=== PATIENT | female | born 2000 | race Caucasian/White ===

== ENCOUNTER → 2018-11-02 | Outpatient (CLI) | payer BC | LOC: COL.RAD 11:37 | DX: R10.32 Left lower quadrant pain (principal); R10.2 Pelvic and perineal pain ==

== ENCOUNTER 2018-11-06 23:45 | Emergency (ER) | payer BC ==
[~2018-11-06] VITALS: Ht 167.6 cm; Wt 75.5 kg
[2018-11-06 23:51] VITALS: TEMP 100.1
[2018-11-07 00:41] LABS: BASO # 0.1 (0.0-0.2); EOS # 0.3 (0.0-0.7); EOS % 4.1 % (0-4.0); GRAN # 3.9 (1.4-6.5); GRAN % 64.3 % (42.2-75.2); HEMATOCRIT 39.8 % (35.0-45.0); HEMOGLOBIN 13.6 g/dl (12.0-15.0); LYMPH # 1.4 (1.2-3.4); LYMPH % 22.2 % (20.0-51.0); MEAN CELL VOLUME 86 fl (80.0-95.0); MEAN CORPUSCULAR HEMOGLOBIN 29 pg (26.0-32.0); MEAN CORPUSCULAR HGB CONC 34 g/dl (33.0-37.0); MEAN PLATELET VOLUME 10.6 fl (7.4-10.4); MONO # 0.5 (0.1-0.6); MONO % 7.9 % (1.7-9.3); PLATELET COUNT 269 K/mm3 (130-400); RED BLOOD COUNT 4.62 M/mm3 (4.10-5.30); REDCELL DISTRIBUTION WIDTH-CV 11.6 % (11.5-14.5)
[2018-11-07 00:51] LABS: BILIRUBIN,TOTAL 0.7 mg/dL (0.0-1.0); CALCIUM 9.4 mg/dL (8.4-10.2); CREATININE, serum 0.65 (0.52-1.25); POTASSIUM 3.7 mmol/L (3.4-5.0); TOTAL PROTEIN 7.6 gm/dL (6.4-8.2)
[2018-11-07] MEDS ORDERED: ADDERALL XR30 MG PO (01:05)
[2018-11-07] MEDS ORDERED: ZOFRAN8 MG PO (01:06)
[2018-11-07] MEDS ORDERED: JOLESSA 30 MCG-1 TAB PO (01:06)
[2018-11-07] MEDS ORDERED: NAPROSYN500 MG PO (01:07)
[2018-11-07] MEDS ORDERED: BENTYL 20MG20 MG/TAB PO (01:07)
[2018-11-07 01:54] LABS: MUCOUS Present /lpf; PH 7 (5-8); URINE APPEARANCE Clear; URINE BACTERIA Rare /hpf; URINE BILIRUBIN Negative (NEGATIVE); URINE BLOOD 2+ (NEGATIVE); URINE COLOR Yellow; URINE GLUCOSE Negative (NEGATIVE); URINE KETONE 2+ (NEGATIVE); URINE LEUKOCYTE ESTERASE Negative (NEGATIVE); URINE NITRATE Negative (NEGATIVE); URINE PROTEIN(semi-quant) 1+ (NEGATIVE); URINE RBC >50 /hpf; URINE UROBILINOGEN >=4.0 mg/dL (NEGATIVE)
[2018-11-07 01:59] LABS: COLLECTION METHOD CLEAN CATCH
[2018-11-07] MEDS ORDERED: NORCO 325 MG-51 TAB PO (03:02)
[2018-11-07] MEDS ORDERED: AMOXICILLIN 8751 TAB PO (03:02)
[2018-11-07] MEDS ORDERED: ZOFRAN 4MG T4 MG/TAB PO (03:02)
[2018-11-07 04:35] VITALS: BP 114/72; PULSE 96
== END 2018-11-07 04:38 | disposition home or self-care (01) ==
LOC: COL.ER 23:45
PROVIDERS: Nurse Practitioner Primary Care
DX: K52.9 Noninfective gastroenteritis and colitis, unspecified (principal); R31.9 Hematuria, unspecified
CPT/HCPCS: J1885; J2270; J2405; J7030

== ENCOUNTER → 2019-06-10 | Outpatient (CLI) | payer BC ==
[~2019-06-10] MED LIST: ADDERALL XR30 MG PO; AMOXICILLIN 8751 TAB PO; BENTYL 20MG20 MG/TAB PO; JOLESSA 30 MCG-1 TAB PO; NAPROSYN500 MG PO; NORCO 325 MG-51 TAB PO; ZOFRAN 4MG T4 MG/TAB PO; ZOFRAN8 MG PO
== END ==
LOC: COL.RAD 06:40
DX: K59.00 Constipation, unspecified (principal); K58.9 Irritable bowel syndrome, unspecified
CPT/HCPCS: A9537; J2805

== ENCOUNTER 2019-07-09 10:56 | Observation (INO) | payer BC ==
[~2019-07-09] VITALS: Ht 167.6 cm; Wt 77.3 kg
[2019-07-09] VITALS (7 sets, daily range): BP systolic 102–133; BP diastolic 54–79; PULSE 69–84; TEMP 98–98.7
[2019-07-09 11:19] LABS: COLLECTION METHOD CLEAN CATCH
[2019-07-09] MEDS ORDERED: METADATECD30 (11:25)
[2019-07-09] MEDS ORDERED: FLOMAX 0.40.4 MG/CAP PO (11:26)
[2019-07-09] MEDS ORDERED: PRIL40 PO (11:27)
[2019-07-09] MEDS ORDERED: COLACE 100100 MG/CAP PO (11:28)
[2019-07-09] MEDS ORDERED: WOMEN'S DAILY1 TAB PO (11:28)
[2019-07-09] MEDS ORDERED: CRANBERRY250 MG (11:28)
[2019-07-09 11:29] LABS: MUCOUS Present /lpf; PH 7 (5-8); URINE APPEARANCE Hazy; URINE BACTERIA Rare /hpf; URINE BILIRUBIN Negative (NEGATIVE); URINE BLOOD Negative (NEGATIVE); URINE COLOR Yellow; URINE GLUCOSE Negative (NEGATIVE); URINE KETONE 1+ (NEGATIVE); URINE LEUKOCYTE ESTERASE 2+ (NEGATIVE); URINE NITRATE Negative (NEGATIVE); URINE PROTEIN(semi-quant) Negative (NEGATIVE); URINE UROBILINOGEN Negative (NEGATIVE)
[2019-07-09] MEDS ORDERED: ZYRTEC 10MG10 MG PO (11:29)
--- NOTE | 2019-07-09 13:50 | NUR ---
Admitted from ED with kidney stone. NPO. Dr. Kim saw patient. No c/o pain or nausea.
--- NOTE | 2019-07-09 15:45 | NUR ---
To surgery per bed with OR staff. Mother here.
--- NOTE | 2019-07-09 17:25 | NUR ---
Returned to room from PACU per bed. Ambulatory to bathroom to void. VSS. No c/o pain. Drinking water. Family at bedside.
--- NOTE | 2019-07-09 18:00 | NUR ---
Complained of severe pain in flank " like trying to pass a stone all over again." Trying to void. Medicated with Morphine and Levsin.
--- NOTE | 2019-07-09 18:30 | NUR ---
Morphine repeated for continued flank pain per order.
--- NOTE | 2019-07-09 18:45 | NUR ---
Able to void malik red urine and passed small blood clot. States pain much improved.
--- NOTE | 2019-07-10 04:05 | NUR ---
Patient stated that she passed a blood clot when this nurse arrived to shift. She states she didn't urinate in the measuring hat because "it made me uncomfortable". Patient states pain is better, but asks for a heating pad. This was given to patient. Patient then called awhile later and stated she felt like she was passing another kidney stone and wanted a CT completed. Educated attempted with patient, but patient and mother not interested. Dr. Kim notified about situation and stated that inflammation from procedure and kidney stone can feel the same. Dr. Kim in to see patient at 2114. Ordered to start patient on fluids and monitor pain throughout the night, and if pain persists, then a stent may be placed. Patient received P[place] 1 tab at 2030. Patient has been asleep since and has not complained of any pain. Will continue to monitor patient.
[2019-07-10 05:13] VITALS: BP 97/55; PULSE 61; TEMP 98.7
--- NOTE | 2019-07-10 06:12 | NUR ---
Patient states she is feeling better this morning, but "it still feels like I'm peeing razor blades." Education provided that it will be uncomfortable to urinate for awhile and that this is expected. Patient denies any further needs. Will continue to monitor.
[2019-07-10 08:36] VITALS: BP 118/73; PULSE 58; TEMP 98.5
--- NOTE | 2019-07-10 10:10 | NUR ---
Patient ready for discharge. Orders obtained, Dr. Kim rounded this am. Iv dc. Patient pain improved with Azo, was reporting razor blade feeling when voiding. office to call her with follow up. Patient mother taking her home. She ambulated out with all belongings, denies questions or concerns.
--- NOTE | 2019-07-10 11:07 | NUR ---
Patient resides with friends/roommates in [place], [place] and plans to discharge back home upon recovery with the support of her friends, roommates and family as needed. 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 Patient reported she had missed a couple of classes last week but her instructors were all understanding and at this time she did not need elementary school social worker to contact the [employer] [employer] of Student Life Department. Patient's primary care physician is Virginie Velez and she is following up with her Urologist Dr. Fermin Kim. Patient's pharmacies are [facility] and [facility], and she does not have advance direcives for healthcare completed at this time. Patient's mother is Clare Izaguirre ([phone]) and lives in [place], [place]. No further needs at this time and patient is discharging home this day.
== END 2019-07-10 10:34 | disposition home or self-care (01) ==
LOC: COL.ER 10:56 → JCC 12:55
PROVIDERS: Nurse Practitioner; ADMIT Urology
DX: N20.1 Calculus of ureter (principal); K21.9 Gastro-esophageal reflux disease without esophagitis; K58.9 Irritable bowel syndrome, unspecified; Z79.899 Other long term (current) drug therapy; Z88.1 Allergy status to other antibiotic agents
CPT/HCPCS: A4216; C1769; G0378; J0690; J0696; J2270; J2405; J2704; J3010; J7030; Q9967

== ENCOUNTER 2020-07-15 19:15 | Emergency (ER) | payer BC ==
[~2020-07-15] VITALS: Ht 170.2 cm; Wt 80.5 kg
[~2020-07-15 19:15] MED LIST changes: +COLACE 100100 MG/CAP PO; +CRANBERRY250 MG; +FLOMAX 0.40.4 MG/CAP PO; +METADATECD30; +PRIL40 PO; +WOMEN'S DAILY1 TAB PO; +ZYRTEC 10MG10 MG PO
[2020-07-15 19:34] LABS: COLLECTION METHOD CLEAN CATCH
[2020-07-15] MEDS ORDERED: XYZAL5 MG PO (19:35)
[2020-07-15 19:42] LABS: PH 7 (5-8); SQUAMOUS EPITHELIAL 0-2 /hpf; URINE APPEARANCE Clear; URINE BACTERIA None Seen /hpf; URINE BILIRUBIN Negative (NEGATIVE); URINE BLOOD 1+ (NEGATIVE); URINE COLOR Colorless; URINE GLUCOSE Negative (NEGATIVE); URINE KETONE Negative (NEGATIVE); URINE LEUKOCYTE ESTERASE Negative (NEGATIVE); URINE NITRATE Negative (NEGATIVE); URINE PROTEIN(semi-quant) Negative (NEGATIVE); URINE RBC 0-2 /hpf; URINE UROBILINOGEN Negative (NEGATIVE)
[2020-07-15 20:06] LABS: ALANINE AMINOTRANSFERASE 23 U/L (4-34); ALBUMIN 4.5 gm/dL (3.5-5.0); ALKALINE PHOSPHATASE 71 U/L (50-136); ANION GAP 9 mmol/L (7-16); AST,SGOT 26 U/L (15-37); BILIRUBIN,TOTAL 0.4 mg/dL (0.0-1.0); BLOOD UREA NITROGEN 8 mg/dL (7-17); C-REACTIVE PROTEIN < 0.5 mg/dL (0.0-0.9); CALCIUM 9.3 mg/dL (8.4-10.2); CARBON DIOXIDE 23 mmol/L (22-30); CHLORIDE 107 mmol/L (98-107); CREATININE, serum 0.75 (0.52-1.25); GLUCOSE 114 mg/dL (74-106); LIPASE 138 U/L (23-300); POTASSIUM 3.6 mmol/L (3.4-5.0); SODIUM 139 mmol/L (137-145); TOTAL PROTEIN 7.8 gm/dL (6.4-8.2)
[2020-07-15 20:43] LABS: BASO # 0.1 (0.0-0.2); EOS # 0.2 (0.0-0.7); EOS % 2.7 % (0-4.0); GRAN # 2.2 (1.4-6.5); GRAN % 29.3 % (42.2-75.2); HEMATOCRIT 40.5 % (37.0-47.0); HEMOGLOBIN 13.3 g/dl (12.5-16.0); LYMPH # 4.4 (1.2-3.4); LYMPH % 59.5 % (20.0-51.0); MEAN CELL VOLUME 88 fl (80.0-100.0); MEAN CORPUSCULAR HEMOGLOBIN 29 pg (27.0-31.0); MEAN CORPUSCULAR HGB CONC 33 g/dl (33.0-37.0); MEAN PLATELET VOLUME 10.4 fl (7.4-10.4); MONO # 0.5 (0.1-0.6); MONO % 7.1 % (1.7-9.3); PLATELET COUNT 289 K/mm3 (130-400); RED BLOOD COUNT 4.58 M/mm3 (4.10-5.30); REDCELL DISTRIBUTION WIDTH-CV 12.5 % (11.5-14.5)
[2020-07-15 21:17] VITALS: BP 131/89; PULSE 68; TEMP 98.1
== END 2020-07-15 21:17 | disposition home or self-care (01) ==
LOC: COL.ER 19:15
PROVIDERS: Nurse Practitioner Primary Care
DX: R10.13 Epigastric pain (principal); R11.0 Nausea; K21.9 Gastro-esophageal reflux disease without esophagitis; Z87.442 Personal history of urinary calculi; Z88.1 Allergy status to other antibiotic agents
CPT/HCPCS: J1885; J2405; J7030

== ENCOUNTER → 2020-07-30 | Outpatient (CLI) | payer BC ==
[~2020-07-30] MED LIST changes: +XYZAL5 MG PO
== END ==
LOC: COL.RAD
DX: K80.20 Calculus of gallbladder without cholecystitis without obstruction (principal); K90.49 Malabsorption due to intolerance, not elsewhere classified; N20.0 Calculus of kidney